=== PATIENT | female | born 1975 | race Caucasian/White ===

== ENCOUNTER → 2022-05-25 10:25 | Outpatient (CLI) | payer OTHER, SELFPAY ==
--- NOTE | ~2022-05-25 | MM_ITS ---
EXAMINATION: MM scrn scott implant BI w ronald HISTORY: Screening mammogram TECHNIQUE: Craniocaudal and mediolateral oblique 3-D tomosynthesis images with implant displacement a nd synthetic 2-D images were generated. Craniocaudal and mediolateral oblique views of the breasts wi thout implant displacement were obtained using full field digital mammography. CAD analysis was submi tted and interpreted. COMPARISON: 12/08/2018 bilateral implant screening mammogram examination 09/18/2016 bilateral diagnostic mammogram and limited right breast ultrasound BREAST PARENCHYMAL COMPOSITION: The breasts are extremely dense, which lowers the sensitivity of mamm ography. FINDINGS: Status post bilateral augmentation mammoplasty. Scattered bilateral benign appearing punctate microcalcifications. There is no evidence of suspicious mass, suspicious calcification, or architectural distortion to chandra ggest malignancy in either breast. There has been no suspicious interval change. IMPRESSION: 1. No mammographic evidence of malignancy. 2. Recommend routine screening mammography in one year. 3. Close correlation with physical examination is recommended as the very dense stroma may obscure ma sses, limiting the mammographic examination. Ultrasound screening may be of benefit in very dense [place] asts. BI-RADS Category 2: Benign finding(s). Reviewed, dictated and finalized at location A. [employer] IMPRESSION: 1. No mammographic evidence of malignancy. 2. Recommend routine screening mammography in one year. 3. Close correlation with physical examination is recommended as the very dense stroma may obscure masses, limiting the mammographic examination. Ultrasound s creening may be of benefit in very dense breasts. BI-RADS Category 2: Benign finding(s).
== END ==
PROVIDERS: PCP Obstetrics & Gynecology Gynecology; Visit Provider Obstetrics & Gynecology Gynecology
DX: Z12.31 Encounter for screening mammogram for malignant neoplasm of breast (principal); Z98.82 Breast implant status
CPT/HCPCS: 77063; 77067

== ENCOUNTER 2023-07-14 12:12 | Outpatient (CLI) | payer BC, SELFPAY ==
--- NOTE | ~2023-07-14 | MM_ITS ---
EXAMINATION: MM scrn scott implant BI w ronald HISTORY: Screening mammogram TECHNIQUE: Craniocaudal and mediolateral oblique 3-D tomosynthesis images with implant displacement a nd synthetic 2-D images were generated. Craniocaudal and mediolateral oblique views of the breasts wi thout implant displacement were obtained using full field digital mammography. CAD analysis was submi tted and interpreted. COMPARISON: May 25, 2022, December 08, 2018 bilateral implant screening mammogram examinations BREAST PARENCHYMAL COMPOSITION: The breasts are extremely dense, which lowers the sensitivity of mamm ography. FINDINGS: Vessels bilateral augmentation mammoplasty. There is no evidence of suspicious mass, calcif ication, or architectural distortion to suggest malignancy in either breast. There has been no suspic ious interval change. IMPRESSION: 1. No mammographic evidence of malignancy. 2. Recommend routine screening mammography in one year. BI-RADS Category 1: Negative Reviewed, dictated and finalized at location A.
== END 2023-07-14 12:13 ==
LOC: MICIMG 12:12
PROVIDERS: PCP Obstetrics & Gynecology Gynecology; Visit Provider Obstetrics & Gynecology Gynecology
DX: Z12.31 Encounter for screening mammogram for malignant neoplasm of breast (principal)
CPT/HCPCS: 77063; 77067

== ENCOUNTER 2024-01-19 10:51 | Outpatient (CLI) | payer BC, SELFPAY ==
--- NOTE | ~2024-01-19 | US_ITS ---
EXAMINATION: US pelvic complete DATE: 01/19/2024 11:11 INDICATION: Excessive and frequent menstruation. TECHNIQUE: Multiple transabdominal sonographic images of the pelvis were obtained. COMPARISON: None. FINDINGS: The uterus measures 7.1 x 5.2 x 6.8 cm. There is no free fluid in the pelvis. The endometrial complex measures 10 mm in thickness. The right ovary measures 3.9 x 2.0 x 2.5 cm. The left ovary measures 3. 7 x 2.1 x 2.1 cm. There is normal vascular flow in the ovaries. IMPRESSION: 1. Normal pelvis. Reviewed, dictated and finalized at location A. IMPRESSION: 1. Normal pelvis.
== END 2024-01-19 10:52 | disposition home or self-care (01) ==
PROVIDERS: PCP Obstetrics & Gynecology Gynecology; Visit Provider Obstetrics & Gynecology Gynecology
DX: N92.0 Excessive and frequent menstruation with regular cycle (principal)
CPT/HCPCS: 76856

== ENCOUNTER 2024-09-06 12:33 | Outpatient (CLI) | payer BC, SELFPAY ==
--- NOTE | ~2024-09-06 | MM_ITS ---
EXAMINATION: MM scrn scott implant BI w ronald HISTORY: Screening TECHNIQUE: Craniocaudal and mediolateral oblique 3-D tomosynthesis images with implant displacement a nd synthetic 2-D images were generated. Craniocaudal and mediolateral oblique views of the breasts wi thout implant displacement were obtained using full field digital mammography. CAD analysis was submi tted and interpreted. COMPARISON: Comparison to multiple prior studies sequentially, with oldest reviewed study dated 12/08. BREAST PARENCHYMAL COMPOSITION: Dense: The breasts are extremely dense, which lowers the sensitivity of mammography. FINDINGS: There is no evidence of suspicious mass, calcification, or architectural distortion to sugg est malignancy in either breast. There has been no suspicious interval change. IMPRESSION: 1. No mammographic evidence of malignancy. 2. Recommend routine screening mammography in one year. BI-RADS Category 1: Negative Reviewed, dictated and finalized at location B.
== END 2024-09-06 12:34 | disposition home or self-care (01) ==
LOC: MICIMG 12:33
PROVIDERS: PCP Obstetrics & Gynecology Gynecology; Visit Provider Obstetrics & Gynecology Gynecology
DX: Z12.31 Encounter for screening mammogram for malignant neoplasm of breast (principal)
CPT/HCPCS: 77063; 77067